=== PATIENT | female | born 1985 | race African-American/Black ===

== ENCOUNTER 2022-03-04 00:02 | Emergency (ER) | payer OTHER ==
[~2022-03-04] VITALS: Ht 172.7 cm; Wt 95.5 kg
[2022-03-04] MEDS ORDERED: LORazepam 2 MG/ML VIAL ONE (00:14)
[2022-03-04] MEDS ORDERED: HALOPERIDOL LACTATE 5 MG/ML VIAL ONE (00:14)
[2022-03-04] MEDS ORDERED: DiphenhydrAMINE HCL 50 MG/ML VIAL ONE (00:14)
[2022-03-04] MEDS ORDERED: DiphenhydrAMINE HCL 50 MG/ML VIAL IM ONE (00:30)
[2022-03-04] MEDS ORDERED: HALOPERIDOL LACTATE 5 MG/ML VIAL IM ONE (00:30)
[2022-03-04 01:25] LABS: COVID AG,FIA SOURCE NASOPHARYNGEAL
[2022-03-04] MEDS ORDERED: NAPR-1025 PO (01:29)
[2022-03-04] MEDS ORDERED: BACTDSB PO (01:29)
[2022-03-04] MEDS ORDERED: METR500 PO (01:29)
[2022-03-04] MEDS ORDERED: LORA-1000 PO (01:29)
[2022-03-04] MEDS ORDERED: NITR-75 PO (01:29)
[2022-03-04] MEDS ORDERED: HALO5TAB2 PO (01:29)
[2022-03-04 02:12] LABS: BASOPHILS % (AUTO) 0.6 % (0.0-2.0); EOSINOPHILS % (AUTO) 0.3 % (1.0-6.0); HEMATOCRIT 38.3 % (36-46); HEMOGLOBIN 12.5 g/dL (12.0-16.0); LYMPHOCYTES # (AUTO) 1.3 K/uL (1.0-4.8); LYMPHOCYTES % (AUTO) 10.8 % (22.0-44.0); MEAN CORPUSCULAR HEMOGLOBIN 28.4 pg (26.0-34.0); MEAN CORPUSCULAR HGB CONC 32.7 G/dL (31.0-37.0); MEAN CORPUSCULAR VOLUME 87 fL (80-100); MONOCYTES # (AUTO) 1.9 K/uL (0.1-1.0); MONOCYTES % (AUTO) 15.6 % (2.0-9.0); NEUTROPHILS # (AUTO) 8.8 K/uL (1.8-7.7); NEUTROPHILS % (AUTO) 72.7 % (40.0-70.0); PLATELET COUNT (AUTO) 321 K/uL (150-450); RED BLOOD CELL COUNT(AUTO) 4.42 MIL/uL (4.00-5.20); RED CELL DISTRIBUTION WIDTH 15.3 % (11.5-14.5)
[2022-03-04 02:14] LABS: ANION GAP 7 mmol/L (8-16); CALCIUM, TOTAL 8.9 mg/dL (8.8-10.5); CARBON DIOXIDE 27 mmol/L (22-29); CHLORIDE 101 mmol/L (98-107); CREATININE 0.99 mg/dL (0.60-1.30); GLUCOSE,RANDOM 91 mg/dL (70-110); POTASSIUM 3.9 mmol/L (3.5-5.1); SODIUM SERUM 135 mmol/L (136-145); UREA NITROGEN, BLOOD 10 mg/dL (7-18)
[2022-03-04 02:16] LABS: GLOMERULAR FILTR. RATE CALC > 60 mL/min (>60)
[2022-03-04 02:29] LABS: ALANINE AMINOTRANSFERASE 32 U/L (12-78); ALBUMIN 3.4 g/dL (3.4-5.0); ALKALINE PHOSPHATASE 67 U/L (46-116); ASPARTATE AMINOTRANSFERASE 30 U/L (15-37); BILIRUBIN,TOTAL 0.2 mg/dL (0.1-1.0); HCG,QUANTITATIVE < 1 mIU/mL (0-6); THYROID STIMULATING HORMONE 1.65 uIU/mL (0.36-3.74); TOTAL PROTEIN, SERUM 7.7 g/dL (6.4-8.2)
[2022-03-04 02:37] LABS: VALPROIC ACID < 3 mcg/mL (50-100)
[2022-03-04 03:29] VITALS: BP 113/70
== END 2022-03-04 04:06 ==
LOC: EMS 00:05
DX: U07.1 COVID-19 (principal); R45.1 Restlessness and agitation; Z02.89 Encounter for other administrative examinations
CPT/HCPCS: 99284; 87426; 80053; 80164; 84443; 84702; 85025; 36415; 96372; G0480; J1200; J1630; J2060

== ENCOUNTER 2022-04-09 09:32 | Emergency (ER) | payer MEDICAID, OTHER ==
[~2022-04-09 09:32] MED LIST: BACTDSB PO; HALO5TAB2 PO; LORA-1000 PO; METR500 PO; NAPR-1025 PO; NITR-75 PO
== END 2022-04-09 09:52 | disposition left against medical advice (07) ==
LOC: EMS 09:32
DX: S80.861A Insect bite (nonvenomous), right lower leg, initial encounter (principal); J45.909 Unspecified asthma, uncomplicated; F14.90 Cocaine use, unspecified, uncomplicated; F11.90 Opioid use, unspecified, uncomplicated; Z88.0 Allergy status to penicillin
CPT/HCPCS: 99283; Z7502